=== PATIENT | male | born 1970 | race Caucasian/White ===

== ENCOUNTER 2024-03-10 15:43 | Emergency (ER) | payer OTHER, SELFPAY ==
[2024-03-10] VITALS (8 sets, daily range): BP systolic 118–143; BP diastolic 76–94; PULSE 110–120; BMI 24.8
--- NOTE | 2024-03-10 16:03 | ED.GENMED ---
History of Present Illness
General
Chief Complaint: Heart Rate Problem
Time Seen by Provider: 03/10/24 15:50
History of Present Illness
History of Present Illness:
Patient is a 54-year-old male with history of diabetes presenting to the emergency department after syncopal event. Patient states that he got out of the car to walk outside a grocery store. As she was walking he started develop some lightheaded
dizziness, white spots in his vision and some ringing in his ears. Noted to feel funny and then had a syncopal event. His lowered him to the ground. He did not hit his head. He does not have any body wide shaking. No urinary incontinence
he then when he came to shortly after tried to stand back up and had another syncopal event. This happened a total of 3 times. He states that each time he knew that he was laying on the ground at a grocery store and wanted to get up. He denies
any chest pain or difficulty breathing. No palpitations. No nausea vomiting. No diarrhea. No abdominal pain. No melena or hematochezia. He does state that he had breakfast about 11 hours ago. He has only had caffeine. No history of syncopal
event. Denies any recent rash or diagnosis of Lyme. No problems with his thyroid that he is aware of. No recent sicknesses.
Per medics on their arrival patient was found to be in sinus bradycardia with a heart rate in the 40s with a blood pressure of 70/40. They gave him 1 mg of atropine and 250 normal saline bolus that resolved all vital sign abnormalities.
Past History
Past History
ED Past Medical History: None (Patient does not see a doctor)
ED Past Surgical History: None
Social History
Tobacco: Smoker
Alcohol: Occasional
Drug: None
Personal:
Living: with family
Employment: Employed
Family History
Family History: Unable to obtain
Phy Exam
Physical Exam
Physical Exam:
GENERAL: in no acute distress
HEENT: normocephalic, extraocular movements intact, dry oral mucosa
NECK: normal inspection
RESPIRATORY: no respiratory distress, clear to auscultation bilaterally
CARDIOVASCULAR: Regular rhythm tachycardic rate
ABDOMEN/: soft, non-distended, non-tender to palpation, no rebound or guarding
EXTREMITIES: non-tender, no edema/swelling
NEUROLOGIC: awake and alert, moves all extremities, no focal neurodeficits
SKIN: warm
Course
Orders/Labs/Results
Orders:
Orders
03/10/24 15:49
Electrocardiogram (*1) Urgent
Reason for Study: Bradycardia / Tachycardia
EKG- Treatment ONCE
03/10/24 15:57
Atropine Sulfate [Atropine 0.1 mg/ml Syringe] 1 mg .ROUTE .STK-MED ONE
03/10/24 16:04
Complete Blood Count/With Diff Urgent
Comprehensive Metabolic Panel Urgent
Free T4 Urgent
Magnesium Urgent
TSH Reflex To Free T4 Urgent
03/10/24 16:26
0.9% Sodium Chloride 1000 ml [Nss] 1,000 ml IV BOLUS
03/10/24 17:11
Urinalysis Reflex To Culture Urgent
Date Specimen was Collected: 03/10/24
Time Specimen was Collected: 18:21
03/10/24 17:17
CT Abd/pelvis Angio W/wo Iv Urgent
Comment:
Reason For Exam: hematuria, syncope
Abnormal Lab Results
03/10/24
16:04
RBC 4.61 L 10^6/uL
(4.70-6.10)
Hct 38.5 L %
(39.0-52.0)
Glucose 173 H mg/dl
(70-99)
TSH (Reflex) 5.54 H uIU/ml
(0.47-4.68)
03/10/24 16:04
03/10/24 16:04
Vital Signs
Initial and Last Documented VS:
Initial Vital Signs
Temp Pulse Resp BP Pulse Ox
98.0 F 115 20 139/94 100
03/10/24 15:51 03/10/24 15:51 03/10/24 15:51 03/10/24 15:51 03/10/24 15:51
Last Documented Vital Signs
Temp Pulse Resp BP Pulse Ox
98.0 F 104 14 118/76 99
03/10/24 15:51 03/10/24 16:15 03/10/24 16:15 03/10/24 16:07 03/10/24 16:00
MDM/Problems Addressed
Differential Diagnosis Includes:
Patient is a 54-year-old male with history of diabetes presenting to the emergency department after syncopal event. On arrival patient's heart rate is in the 1 teens and blood pressures in the 130s. Exam does show dry oral mucosa. Likely syncopal
event secondary to orthostatic hypotension given the prodrome. Less likely to be cardiac arrhythmia as there was a prodrome. Doubt CVA or intracranial hemorrhage. Will obtain blood work orthostatics and give additional IV fluids. EKG obtained
per my interpretation is sinus tachycardia.
*Critical Care Note
Total Time (30-74mins, 75-104mins- exclusive of procedures): Not Applicable
Update Note
Update Note:
Orthostatics are positive. Will give additional IV fluids.
On reevaluation his heart rate is in the 80s. He is normal sinus rhythm per my interpretation the monitor. His blood pressure remains normal. Blood work is otherwise reassuring.
I did reevaluate patient to see if he could ambulate him without symptoms. However at that time he shares with me that he was having hematuria and slight abdominal pain an hour prior to his syncopal events. Will proceed with CT angio of abdomen
pelvis to evaluate for any AAA rupture. Discussed with CT scan and patient will be taken immediately over.
CT scan per my interpretation with no obvious AAA rupture. Patient signed out to oncoming attending pending official CT read. Anticipate discharge if CT unremarkable.
ED Attending Note
-
Portions of this chart may have been created with voice recognition software.� Occasional wrong word or��sound alike� substitutions may have occurred due to the inherent limitations of voice recognition software.
Discharge Plan
Departure
Discharge Problem:
Syncope
Instructions: Orthostatic hypotension, Fainting in adults - ED discharge instructions
Prescriptions:
No Action
buprenorphine-naloxone 1 TAB tablet, sublingual
1 tab sublingual BID
Patient Comments:
03/14/2019 patient filled 360 for 30days on 03/10/2019.
(DME) insulin syringe-needle U-100 1 EACH syringe
1 ea MC BID Qty: 100 0RF
insulin NPH and regular human 100 UNIT/1 ML suspension
14 units SC BID Qty: 1 1RF
metformin 1,000 MG tablet
1,000 mg PO BID@0800,1700 Qty: 120 0RF
Referrals:
NONE,* [Family Provider] -
Activity Restrictions/Additional Instructions:
You have been evaluated in the Emergency Department today for your syncopal episode. Your evaluation did not show evidence of medical conditions requiring emergent intervention at this time, however we recommend you follow up with your primary care
provider for further testing as an outpatient. Please make sure you drink at least 8 glasses of water a day.
Please follow up with your primary care doctor in 2-3 days.
Return to the ER immediately for worsening or uncontrolled symptoms, headache, chest pain, shortness of breath, persistent vomiting, vision changes, recurrent fainting, or for any other concerning symptoms.
Thank you for choosing us for your care.
Interventions
Interventions:
*Risk Screen - Suicide Last Done: 03/10/24 15:49
*General Assessment Last Done: 03/10/24 15:49
*Neglect/Abuse Screening Last Done: 03/10/24 15:49
ED- Fall Risk Assessment Last Done: 03/10/24 15:59
*ED COVID-19 Vaccine History Last Done: 03/10/24 15:49
ED- Cardiac Assessment Last Done: 03/10/24 15:59
ED- Pulmonary Assessment Last Done: 03/10/24 15:59
Discharge Date and Time
Print Language: [id number]
[2024-03-10 16:30] LABS: % Basophils 0.7 % (0-2); % Eosinophils 1.3 % (0-6); % Immature Granulocytes 0.1 % (0-0.5); % Lymphocytes 46.5 % (20.5-51.1); % Monocytes 6.1 % (1.7-9.3); % Neutrophils 45.3 % (42.2-75.2); Absolute Basophils 0.1 10^3/uL (0-0.2); Absolute Eosinophils 0.1 10^3/uL (0-0.7); Absolute Lymphocytes 3.2 10^3/uL (1.2-3.4); Absolute Monocytes 0.4 10^3/uL (0.1-0.6); Absolute Neutrophils 3.1 10^3/uL (1.4-6.5); Hematocrit 38.5 % (39.0-52.0); Hemoglobin 13.3 g/dL (13.0-18.0); Mean Corp Hgb Conc. 34.5 g/dL (33.0-37.0); Mean Corpuscular Hgb 28.9 pg (27.0-31.0); Mean Corpuscular Volume 83.5 fL (80.0-94.0); Nucleated Red Blood Cells % 0 % (-); Platelet Count 266 10^3/uL (130-400); Red Blood Cell Count 4.61 10^6/uL (4.70-6.10); Red Cell Dist. Width 12.9 % (11.5-14.5); White Blood Cell Count 6.9 10^3/uL (4.8-10.8)
[2024-03-10] MEDS: NSS 1000 IV (16:30)
[2024-03-10 16:43] LABS: ALT (SGPT) 19 U/L (0-50); AST (SGOT) 24 U/L (17-59); Albumin 4.9 g/dl (3.5-5.0); Alkaline Phosphatase 53 U/L (38-126); Blood Urea Nitrogen 20 mg/dl (9-20); Calcium 9.2 mg/dl (8.4-10.2); Carbon Dioxide 25 mmol/L (22-30); Chloride 99 mmol/L (98-107); Estimated Creatinine Clearance 88 ml/min; Glucose 173 mg/dl (70-99); Magnesium 2.1 mg/dl (1.6-2.3); Potassium 3.7 mmol/L (3.5-5.1); Sodium 137 mmol/L (135-145); Total Bilirubin 0.7 mg/dl (0.2-1.3); Total Protein 7.5 g/dl (6.3-8.2); eGFR > 60.00
[2024-03-10 17:13] LABS: TSH Reflex To Free T4 5.54 uIU/ml (0.47-4.68)
[2024-03-10 17:42] LABS: Free T4 1.14 ng/dl (0.78-2.19)
[2024-03-10 18:33] LABS: Urine Albumin Trace (Neg - Trace); Urine Bilirubin Negative (Negative); Urine Character Clear (Clear); Urine Color Yellow; Urine Glucose Negative (Negative); Urine Ketone Negative (Negative); Urine Leukocyte Trace (Negative); Urine Nitrite Negative (Negative); Urine Occult Blood Negative (Negative); Urine Urobilinogen Negative (Neg - 1+)
[2024-03-10 18:47] LABS: Urine Bacteria Few (Negative); Urine Red Blood Cell 0-2 /HPF (0-2)
== END 2024-03-10 19:32 | disposition home or self-care (01) ==
LOC: EMR 15:43
PROVIDERS: EMERGENCY PHYSICIAN Student in an Organized Health Care Education/Training Program
DX: R55 Syncope and collapse (principal); E11.9 Type 2 diabetes mellitus without complications; F17.200 Nicotine dependence, unspecified, uncomplicated
CPT/HCPCS: 99284; 96360; 74174; 80053; 81003; 81015; 83735; 84439; 84443; 85025; 93005; Q9967